=== PATIENT | female | born 1955 | race Caucasian/White ===

== ENCOUNTER 2016-11-17 18:03 | Emergency (ER) | payer OTHER ==
[~2016-11-17] VITALS: Ht 172.7 cm; Wt 104.3 kg
[~2016-11-17 18:03] MED LIST: ALBUTEROL2.5 MG/3 M INH/SOL; ASPIRIN EC81 M1 PO; BACTRIM DS 8001 TAB PO; FLOVENT HF0.22 MG/Ac INH; LIPITOR10 M1 PO; PREDNISONE 20MG20 MG PO; PRILOSEC 20MG C20 MG PO; SYNTHROID0.025 MG PO; SYNTHROID300 MCG PO; VENTOLIN HFA18 GM INH
[2016-11-17 18:08] VITALS: BP 161/100
--- NOTE | 2016-11-17 19:12 | ED GENERAL ADULT ---
History of Present Illness General Chief Complaint: Foot or Ankle Injury Stated Complaint: PT RG FOOT HAS PAIN Source: patient Exam Limitations: no limitations Vital Signs & Intake/Output Vital Signs & Intake/Output Vital Signs Date Time Temp Pulse Resp B/P Pulse O2 O2 Flow FiO2 Ox Delivery Rate 11/17 1808 98.7 71 18 161/100 100 Room Air Allergies Coded Allergies: venom-honey bee (Severe, HARD TO BREATHE 11/17/16) Penicillins (Intermediate, RASH 11/17/16) carisoprodol (From SOMA) (DELIRIOUS 11/17/16) morphine (Intermediate, NAUSEA 11/17/16) Reconcile Medications Albuterol Sulfate (Ventolin Hfa) 90 MCG HFA.AER.AD 2 PUF INH PRN ASTHMA ( Reported) Albuterol Sulfate 2.5 MG/3 ML (0.083 %) VIAL.NEB 1 Vial INH/RANDELL PRN ASTHMA ( Reported) Aspirin (Ecotrin*) 81 MG TABLET.DR 1 TAB PO DAILY HEART/BLOOD (Reported) Atorvastatin Calcium (Lipitor) 10 MG TABLET 1 TAB PO DAILY CHOLESTEROL ( Reported) Fluticasone/Vilanterol (Breo Ellipta 200-25 Mcg INH) 200 MCG-25 MCG/DOSE BLST.W.DEV 1 PUFF INH DAILY ASTHMA (Reported) Levothyroxine Sodium (Synthroid) 300 MCG TABLET 1 TAB PO DAILY THYROID ( Reported) Oxycodone HCl/Acetaminophen (Percocet 5-325 MG Tablet) 5 MG-325 MG TABLET 1 TAB PO BID PRN pain Triage Note: PT STATES SHE WOKE UP THIS WITH PAIN TO TOES ON R FOOT, R CALF PAIN, R THIGH PAIN. DENIES INJURY TO AREA RECENTLY. STATES SHE DID FRACTURE HER PINKY TOE APPROX 4-5 MONTHS AGO ON THE R FOOT. STATES SHE ALSO RECENTLY HURT HER BACK. Triage Nurses Notes Reviewed? yes HPI: 61-year-old female arrives through triage hallway C for evaluation of right fifth toe pain. She has a history of fracture in that toe in the past. She reports the pain started yesterday but today she has a burning sensation in her right foot that travels up the back of her right calf up into her hip. She also has been came complaining of the urinary frequency with no urgency with no pain or hematuria and left back pain. She has a history of back issues, herniated disc in the past denies any numbness or tingling in her lower extremities she denies any incontinence she denies any change in her medications. The pain is 10 out of 10 at this time in her right toe and right foot burning sensation that is not reproducible. Past History Travel History Traveled to [place] past 21 day No Medical History Any Pertinent Medical History? see below for history Neurological: NONE EENT: NONE Cardiovascular: mild CAD noted on cardiac cath Respiratory: asthma, COPD Gastrointestinal: NONE Hepatic: NONE Renal: NONE Musculoskeletal: NONE Psychiatric: NONE Endocrine: NONE Blood Disorders: NONE Cancer(s): NONE CHEMIST WATER PURIFICATION/Reproductive: NONE Surgical History Surgical History: hysterectomy, R SHOULDER SURGERY R KNEE SURGERY X2 Psychosocial History What is your primary language Czech Tobacco Use: Quit >30 days ago Family History Family History, If Any: FATHER *No pertinent family history Heart attack, Onset: 60+. MOTHER *No pertinent family history FHx: hypertension Heart attack, Onset: 40-50. Hx Contributory? No Review of Systems Review of Systems Constitutional: Reports: see HPI. EENTM: Denies: no symptoms. Respiratory: Denies: no symptoms. Cardiovascular: Denies: no symptoms. GI: Denies: no symptoms. Genitourinary: Reports: frequency. Musculoskeletal: Reports: see HPI, joint pain (right fifth toe, right foot). Skin: Denies: no symptoms. Neurological/Psychological: Denies: no symptoms. Hematologic/Endocrine: Denies: no symptoms. Immunologic/Allergic: Denies: no symptoms. Physical Exam Physical Exam General Appearance: well developed/nourished, alert, awake, mild distress Head: atraumatic, normal appearance Eyes: Bilateral: normal appearance, PERRL, EOMI. Ears, Nose, Throat: normal pharynx, normal ENT inspection, hearing grossly normal Neck: normal inspection, supple, full range of motion Respiratory: normal breath sounds, chest non-tender, no respiratory distress Cardiovascular: regular rate/rhythm Peripheral Pulses: 2+ radial (R), 2+ radial (L) Gastrointestinal: normal bowel sounds, soft, non-tender Back: normal inspection, normal range of motion Extremities: normal inspection, normal capillary refill, normal range of motion, no edema, tenderness to right foot and right calf with no erythema, swelling but reports it is more internal Neurologic/Psych: no motor/sensory deficits, awake, alert, oriented x 3, normal gait, normal mood/affect Skin: intact, normal color, warm/dry Core Measures ACS in differential dx? No CVA/TIA Diagnosis: No Severe Sepsis Present: No Septic Shock Present: No Progress Differential Diagnoses I considered the following diagnoses in my evaluation of the patient: Neuropathic type pain to right lower extremity, DVT but less likely, UTI, sciatica, back pain. Plan of Care: Orders Procedure Date/time Status COMPREHENSIVE METABOLIC PANEL 11/17 1908 Complete CBC WITHOUT DIFFERENTIAL 11/17 1908 Complete Laboratory Tests 11/17/161929: Anion Gap 12, Estimated GFR > 60, BUN/Creatinine Ratio 21.7, Glucose 93, Calcium 9.4, Total Bilirubin 0.8, AST 25, ALT 45, Alkaline Phosphatase 64, Total Protein 7.3, Albumin 4.4, Globulin 2.9, Albumin/Globulin Ratio 1.5, CBC w Diff NO MAN DIFF REQ, RBC 4.80, MCV 90.2, MCH 30.4, RDW 13.4, MPV 8.5, Gran % 63.5, Lymphocytes % 22.1, Monocytes % 10.8 H, Eosinophils % 3.2, Basophils % 0.4, Absolute Granulocytes 4.6, Absolute Lymphocytes 1.6, Absolute Monocytes 0.8 H, Absolute Eosinophils 0.2, Absolute Basophils 0, PUBS MCHC 33.7 11/17/161908: Urine Color Cancelled, Urine Clarity Cancelled, Urine pH Cancelled, Ur Specific [place] Cancelled, Urine Protein Cancelled, Urine Ketones Cancelled, Urine Nitrite Cancelled, Urine Bilirubin Cancelled, Urine Urobilinogen Cancelled, Ur Leukocyte Esterase Cancelled, Ur Microscopic Cancelled, Urine Hemoglobin Cancelled, Urine Glucose Cancelled Initial ED EKG: none Comments: 9 PM. I reviewed blood work with patient and family and everything is within normal limits. She did not produce a urine for UA yet she is feeling 100% better after the Percocet. She denies pain whatsoever. She is due to follow up with her associate quality engineer on Saturday and she will discuss more at that time but she will also follow up with her primary care provider. Departure Departure Time of Disposition: 2100 Disposition: HOME OR SELF CARE Condition: Stable Clinical Impression Primary Impression: Neuropathy Referrals: GLORIA CARLSON,MELISSA Felix (PCP/Family) Additional Instructions: Please take Percocet has needed for pain. Please do not drive or operate any machinery while taking the Percocet. Please follow up with her primary care provider this coming week and with Dr. Henao has already scheduled on Saturday. Departure Forms: Customer Survey General Discharge Information Prescriptions: Current Visit Scripts Oxycodone HCl/Acetaminophen (Percocet 5-325 MG Tablet) 1 TAB PO BID PRN pain #10 TAB Critical Care Note Critical Care Note Critical Care Time: non-applicable
[2016-11-17 19:34] LABS: ABSOLUTE BASOPHIL COUNT 0 /CUMM (0.0-0.2); ABSOLUTE EOSINOPHIL COUNT 0.2 /CUMM (0.0-0.7); ABSOLUTE GRANULOCYTE CT 4.6 /CUMM (1.4-6.5); ABSOLUTE LYMPH COUNT 1.6 /CUMM (1.2-3.4); ABSOLUTE MONOCYTE COUNT 0.8 /CUMM (0.10-0.60); BASOPHIL % 0.4 % (0.0-2.0); EOSINOPHIL % 3.2 % (0-5); GRANULOCYTE % 63.5 % (42.2-75.2); HEMATOCRIT 43.3 % (37-47); MEAN CORPUSCULAR HGB 30.4 PG (27.0-31.0); MEAN CORPUSCULAR HGB CONC 33.7 G/DL (33.0-37.0); MEAN CORPUSCULAR VOLUME 90.2 FL (81.0-99.0); MEAN PLATELET VOLUME 8.5 FL (7.4-10.4); PLATELET COUNT 153 /CUMM (130-400); RBC DISTRIBUTION WIDTH 13.4 % (11.5-14.5); WHITE BLOOD CELL COUNT 7.2 /CUMM (4.8-10.8)
[2016-11-17] MEDS ORDERED: BREO ELLIPTA 21 EACH INH (20:08)
[2016-11-17] MEDS ORDERED: PERCOCET 5-3251 EACH PO (21:04)
== END 2016-11-17 21:10 ==
LOC: ERH 18:03
PROVIDERS: Nurse Practitioner Family
DX: G62.9 Polyneuropathy, unspecified (principal)

== ENCOUNTER 2016-11-21 20:25 | Emergency (ER) | payer OTHER ==
[~2016-11-21] VITALS: Ht 167.6 cm; Wt 104.3 kg
[~2016-11-21 20:25] MED LIST changes: +BREO ELLIPTA 21 EACH INH; +PERCOCET 5-3251 EACH PO
[2016-11-21 20:37] VITALS: BP 179/79
--- NOTE | 2016-11-21 21:27 | RADIOLOGY REPORT ---
EXAMINATION: XR FOOT, RIGHT CLINICAL INFORMATION: Pain. Concern for osteomyelitis. COMPARISON: None TECHNIQUE: 4 views of the right foot. FINDINGS: There is a deformity of the proximal phalanx of the fifth toe at the distal diaphyseal shaft. This does involve the articular surface of bone at the PIP joint. Fracture line though is not apparent. This is likely an old fracture. There is ossified callus formation around the deformity of the bone. Correlate with history. No bone destruction. No evidence of osteomyelitis. Small plantar calcaneal spur. IMPRESSION: 1. Deformity of the proximal phalanx of fifth toe at the PIP joint. Suspect this is an old healing fracture. Correlate clinically. 2. No bone destruction. No radiographic evidence of osteomyelitis.
--- NOTE | 2016-11-21 22:35 | ED ANKLE/FOOT INJURY COMPLAINT ---
History of Present Illness General Chief Complaint: General Adult Stated Complaint: "SOB, CHEST PRESSURE, INFECTION ON RT PINKY TOE" Source: patient, old records Exam Limitations: no limitations Vital Signs & Intake/Output Vital Signs & Intake/Output Vital Signs Date Time Temp Pulse Resp B/P Pulse O2 O2 Flow FiO2 Ox Delivery Rate 11/21 2036 98.3 94 16 179/79 100 Room Air Allergies Coded Allergies: venom-honey bee (Severe, HARD TO BREATHE 11/17/16) Penicillins (Intermediate, RASH 11/17/16) carisoprodol (From SOMA) (DELIRIOUS 11/17/16) morphine (Intermediate, NAUSEA 11/17/16) Reconcile Medications Albuterol Sulfate (Ventolin Hfa) 90 MCG HFA.AER.AD 2 PUF INH PRN ASTHMA ( Reported) Albuterol Sulfate 2.5 MG/3 ML (0.083 %) VIAL.NEB 1 Vial INH/RANDELL PRN ASTHMA ( Reported) Aspirin (Ecotrin*) 81 MG TABLET.DR 1 TAB PO DAILY HEART/BLOOD (Reported) Atorvastatin Calcium (Lipitor) 10 MG TABLET 1 TAB PO DAILY CHOLESTEROL ( Reported) Cephalexin (Keflex) 500 MG CAPSULE 1 CAP PO TID INFECTION Fluticasone/Vilanterol (Breo Ellipta 200-25 Mcg INH) 200 MCG-25 MCG/DOSE BLST.W.DEV 1 PUFF INH DAILY ASTHMA (Reported) Levothyroxine Sodium (Synthroid) 300 MCG TABLET 1 TAB PO DAILY THYROID ( Reported) Oxycodone HCl/Acetaminophen (Percocet 5-325 MG Tablet) 5 MG-325 MG TABLET 1 TAB PO BID PRN pain Triage Note: PT TO ED FOR WORSENING R TOE AND FOOT PAIN, REDNESS, TENDER AND DIFFICULTY WEIGHT BEARING, STATES SHE HAD A SIGNIFICANT TOE FX APPROX 4-5 MONTHS AGO, LAST SATURDAY SHE STATED SHE BEGAN HAVING "A TON OF PAIN IN TOE AND ITS GOTTEN SO MUCH MORE RED" PT DENIES FEVERS, REPORTING A WORSENING COUGH WITH SPUTUM OVER THE PAST DAY WELL. Triage Nurses Notes Reviewed? yes Duration: day(s): (several) Timing: recent history Severity: mild Pain/Injury Location: Right: 5th toe. Method of Injury: h/o toe fracture Modifying Factors: Worsens With: movement, other (PALPATION). Associated Symptoms: swelling, redness HPI: This is a 61 year old female who presents to the ER for chief complaintof right fifth toe pain, swelling and reness for the past several days. SHe was seen at [facility] and diagnosed with a soft tissue infectino and started on keflex which she did not begin until today. Today she had some shortness of breath and cough and worried that the two complaints were related. She states that in July she broke the toe with states that it was a very deep wound and didn't heal well. A friend of her still to her that there may be a possibility of an infection develop. Past History Travel History Traveled to [place] past 21 day No Medical History Any Pertinent Medical History? see below for history Neurological: NONE EENT: NONE Cardiovascular: mild CAD noted on cardiac cath Respiratory: asthma, COPD Gastrointestinal: NONE Hepatic: NONE Renal: NONE Musculoskeletal: NONE Psychiatric: NONE Endocrine: NONE Blood Disorders: NONE Cancer(s): NONE TOP DISTRIBUTION EXECUTIVE/Reproductive: NONE Surgical History Surgical History: hysterectomy, R SHOULDER SURGERY R KNEE SURGERY X2 Psychosocial History What is your primary language [place] Tobacco Use: Quit >30 days ago ETOH Use: occasional use Illicit Drug Use: denies illicit drug use Family History Family History, If Any: FATHER *No pertinent family history Heart attack, Onset: 60+. MOTHER *No pertinent family history FHx: hypertension Heart attack, Onset: 40-50. Hx Contributory? No Review of Systems Review of Systems Constitutional: Denies: chills, fever. EENTM: Reports: no symptoms. Respiratory: Reports: cough, short of breath, sputum production. Cardiovascular: Denies: chest pain, peripheral edema. GI: Denies: abdominal pain. Genitourinary: Reports: no symptoms. Musculoskeletal: Reports: see HPI, joint pain. Skin: Reports: erythema. Neurological/Psychological: Reports: no symptoms. Hematologic/Endocrine: Denies: bruising, bleeding. Immunologic/Allergic: Denies: splenectomy. All Other Systems: Reviewed and Negative Physical Exam Physical Exam General Appearance: well developed/nourished, mild distress Head: atraumatic Eyes: Bilateral: PERRL, EOMI. Ears, Nose, Throat: normal pharynx, normal ENT inspection, hearing grossly normal Neck: normal inspection, supple Cardiovascular/Respiratory: regular rate/rhythm, wheezing, DIMINISHED BREATH SOUNDS Gastrointestinal: SOFT NONTENDER Back: normal inspection Leg/Knee/Thigh Left: normal range of motion, normal inspection Leg/Knee/Thigh Right: normal range of motion, normal inspection Ankle Left: normal inspection, normal range of motion Ankle Right: normal inspection, normal range of motion Foot Left: normal inspection, normal range of motion Foot Right: soft tissue tenderness (RIGHT 5TH TOE), swelling Neuro/Vascular: normal motor function, normal sensation Tendon: normal tendon function Psychiatric: awake, alert, oriented x 3 Skin: intact, normal color, warm/dry Progress Differential Diagnosis: cellulitis, OSTEOMYELITIS, BRONCHITIS, PNEUMONIA, URI Plan of Care: Orders Procedure Date/time Status RT ED ORDERS 11/21 2232 Active Diagnostic Imaging: Viewed by Me: Radiology Read. Discussed w/RAD: Radiology Read. Radiology Impression: PATIENT: JADE GORDON PRESENT AGE: 61 PATIENT ACCOUNT NO: [id number] : 53 LOCATION: [facility] ORDERING PHYSICIAN: WILLA ORDOÑEZ DO SERVICE DATE: 11/21/16 EXAM TYPE: RAD - XRY-FOOT COMPLETE, R EXAMINATION: XR FOOT, RIGHT CLINICAL INFORMATION: Pain. Concern for osteomyelitis. COMPARISON: None TECHNIQUE: 4 views of the right foot. FINDINGS: There is a deformity of the proximal phalanx of the fifth toe at the distal diaphyseal shaft. This does involve the articular surface of bone at the PIP joint. Fracture line though is not apparent. This is likely an old fracture. There is ossified callus formation around the deformity of the bone. Correlate with history. No bone destruction. No evidence of osteomyelitis. Small plantar calcaneal spur. IMPRESSION: 1. Deformity of the proximal phalanx of fifth toe at the PIP joint. Suspect this is an old healing fracture. Correlate clinically. 2. No bone destruction. No radiographic evidence of osteomyelitis. DICTATED BY: SAHRA GOTTI MD DATE/TIME DICTATED:11/21/162118 R PROGRAMMER :ESVIN DATE/TIME TRANSCRIBED:11/21/162118 CONFIDENTIAL, DO NOT COPY WITHOUT APPROPRIATE AUTHORIZATION. <Electronically signed in Other Vendor System> SIGNED BY: SAHRA GOTTI MD 11/21/162126 Departure Departure Time of Disposition: 2250 Disposition: HOME OR SELF CARE Condition: Stable Clinical Impression Primary Impression: Bronchitis Secondary Impressions: Soft tissue injury of toe Referrals: HARJIT BOWEN,EDDA CASTRO MD,MELISSA Felix (PCP/Family) Additional Instructions: Keflex as directed. Remainder of your prescription is any pharmacy. Please follow-up with the orthopedic doctor or the commissary steward listed. Return to the ER for any changing or worsening symptoms. Departure Forms: Customer Survey General Discharge Information Prescriptions: Current Visit Scripts Cephalexin (Keflex) 1 CAP PO TID #30 CAP
[2016-11-21] MEDS ORDERED: KEFLEX500 M1 PO (22:52)
== END 2016-11-21 23:22 ==
LOC: ERH 20:25
DX: S99.921A Unspecified injury of right foot, initial encounter (principal); J40 Bronchitis, not specified as acute or chronic; Z87.891 Personal history of nicotine dependence; R07.89 Other chest pain
CPT/HCPCS: 1263; 73630-RT